=== PATIENT | female | born 1955 | race Caucasian/White ===

== ENCOUNTER → 2018-01-24 | Outpatient (CLI) | payer BC | LOC: M WHC 10:28 | DX: Z12.31 Encounter for screening mammogram for malignant neoplasm of breast (principal) ==

== ENCOUNTER → 2019-04-25 | Outpatient (CLI) | payer MEDICARE, BC ==
[~2019-04-25] MED LIST: EFFE75CA2 PO; HYDR12CA PO; METO100T5 PO
--- NOTE | 2019-04-25 11:30 | REPMRS ---
Patient History The patient states she had a clinical breast exam in 04/2019. Patient is postmenopausal and has history of basal and squamous cell skin cancer starting at age 46. Family history of pancreatic cancer at age 89 in mother, colorectal cancer at age 50 or over in maternal grandmother. Took unspecified hormones for 18 years. Digital Woman Screen Mammo: April 25, 2019 - Exam #: [id number] Bilateral CC and MLO view(s) were taken. Technologist: Mihcelle Beckett, Technologist Prior study comparison: January 24, 2018, digital woman screen mammo performed at [facility]. September 09, 2016, digital woman screen mammo performed at [facility]. July 17, 2015, digital woman screen mammo performed at [facility]. FINDINGS: There are scattered fibroglandular densities. There is a moderate amount of residual fibroglandular tissue which is fairly symmetric. There is no interval development of dominant mass, architectural distortion, or clustered microcalcification typical of malignancy. There has been no change in the appearance of the mammogram from the prior studies. 3-D tomosynthesis shows no additional findings. Assessment: BI-RADS/ACR category 1 mammogram. Negative Mammogram. Recommendation Routine screening mammogram of both breasts in 1 year (for women over age 40). This patient's Lifetime Breast Cancer RIsk is estimated at 5.5 %. This mammogram was interpreted with the aid of an FDA-approved computer-aided dectection system. Electronically Signed By: Aly Le MD 04/25/19 [id number]
--- NOTE | 2019-04-26 13:43 | DEXA ---
AP SPINE L1 - L4 1.182 -0.1 1.5 LT FEMUR TOTAL 0.903 -0.8 0.4 LT NECK 0.877 -1.2 0.3 RT FEMUR TOTAL 0.941 -0.5 0.7 RT NECK 0.875 -1.2 0.3 TOTAL BODY TOTAL OTHER COMMENTS: Normal bone densitometry of the spine. There is low bone density of the hips. The density of the spine has increased 1.8% since the initial exam on 08/01/2001. The spine density has decreased 2.2% since the most recent exam on 07/04/2014 The density of the left hip has decreased 3.6% since the initial exam on 08/01/2001. The density of the left hip has decreased 0.1% since most recent exam on 07/04/2014. The density of the right hip has increased 1.7% since the initial exam on 08/01/2001. The density of the right hip has increased 2.1% since the most recent exam on 07/04/2014. FOLLOW-UP: Recommendation for the next bone density exam: 2 years. JOSEPH
== END ==
LOC: M WHC 09:38
PROVIDERS: ATTEND Nurse Practitioner Women's Health
DX: Z01.419 Encounter for gynecological examination (general) (routine) without abnormal findings (principal); Z12.31 Encounter for screening mammogram for malignant neoplasm of breast; Z13.820 Encounter for screening for osteoporosis; Z78.0 Asymptomatic menopausal state; Z85.828 Personal history of other malignant neoplasm of skin; Z80.0 Family history of malignant neoplasm of digestive organs; Z92.29 Personal history of other drug therapy
CPT/HCPCS: 77063; 77067; 77080; G0101

== ENCOUNTER → 2020-05-28 | Outpatient (CLI) | payer MEDICARE, BC ==
--- NOTE | 2020-05-28 16:43 | REPMRS ---
Patient History The patient states she had a clinical breast exam in May 2020. Family history of pancreatic cancer at age 89 in mother, colorectal cancer at age 50 or over in maternal grandmother. Took unspecified hormones for 18 years. 3D TOMOSYNTHESIS WAS PERFORMED. [facility] for [facility] cancer [facility] 5.2%. VOLPARA DENSITY B. Digital Woman Screen Mammo: May 28, 2020 - Exam #: [id number] Bilateral CC and MLO view(s) were taken. Technologist: Halley Birch, Technologist Prior study comparison: April 25, 2019, bilateral digital woman screen mammo performed at [facility]. January 24, 2018, digital woman screen mammo performed at [facility]. FINDINGS: There are scattered fibroglandular densities. There has been no change in the appearance of the mammogram from the prior studies. There is a mild amount of residual fibroglandular tissue which is fairly symmetric. There is no interval development of dominant mass, architectural distortion, or clustered microcalcification suggestive of malignancy. Assessment: BI-RADS/ACR category 1 mammogram. Negative Mammogram. Recommendation Routine screening mammogram in 1 year (for women over age 40). This mammogram was interpreted with the aid of an FDA-approved computer-aided dectection system. Electronically Signed By: Kirk Garrett MD 05/28/20 [id number]
== END ==
LOC: M WHC 15:02
PROVIDERS: ATTEND Nurse Practitioner Women's Health
DX: Z12.31 Encounter for screening mammogram for malignant neoplasm of breast (principal); Z80.0 Family history of malignant neoplasm of digestive organs; Z92.29 Personal history of other drug therapy
CPT/HCPCS: 77063; 77067; G0463

== ENCOUNTER → 2022-02-02 | Outpatient (CLI) | payer BC, MEDICARE | LOC: M WHC 09:19 | PROVIDERS: ATTEND Obstetrics & Gynecology | DX: Z12.31 Encounter for screening mammogram for malignant neoplasm of breast (principal) ==